=== PATIENT | female | born 1980 | race Caucasian/White ===

== ENCOUNTER 2019-06-23 18:31 | Observation (INO) ==
[2019-06-23 19:58] LABS: Basophils % 0.3 %; Eosinophils # 0.1 K/mcL (0.0-0.6); Eosinophils % 2.1 %; Hematocrit 38.3 % (35.3-44.9); Hemoglobin 12.1 g/dL (11.5-15.4); Immature Granulocytes % 0.6 % (0-4); Lymphocytes # 1.1 K/mcL (0.6-4.6); Lymphocytes % 16.4 %; Mean Corpuscular HGB Conc 31.6 g/dL (31.6-35.5); Mean Corpuscular Hemoglobin 25.1 pg (28.0-33.3); Mean Corpuscular Volume 79.5 fL (83.0-100.0); Mean Platelet Volume 9.1 fL (9.4-12.4); Monocytes # 0.5 K/mcL (0.0-1.3); Neutrophils # 4.9 K/mcL (1.6-8.9); Platelet Count 153 K/mcL (140-400); Red Blood Count 4.82 M/mcL (3.82-4.97); Red Cell Distribution Width 14.4 % (11.5-14.5); Segmented Neutrophils % 72.6 %; White Blood Count 6.8 K/mcL (4.3-11.1)
[2019-06-23 20:14] LABS: BUN/Creatinine Ratio 13 (6-26); Blood Urea Nitrogen 8 mg/dL (6-20); Calcium 8.5 mg/dL (8.6-10.3); Carbon Dioxide 24 mEq/L (23-29); Chloride 100 mEq/L (98-107); Glucose 97 mg/dL (70-105); Osmolality,Calculated 270 (280-300); Sodium 131 mEq/L (136-145); eGFR For African Americans > 60 (> 60); eGFR For Non-African Americans > 60 (> 60)
[2019-06-23 20:16] LABS: Troponin I < 0.03 ng/mL (< 0.04)
[2019-06-23 20:54] LABS: Alanine Aminotransferase 5 Units/L (7-52); Albumin 3.7 g/dL (3.5-5.7); Albumin/Globulin Ratio 1.2 (1.1-2.2); Alkaline Phosphatase 79 Units/L (34-104); Aspartate Amino Transferase 12 Units/L (13-39); Bilirubin,Indirect 0.5 mg/dL (0.0-1.2); Bilirubin,Total 0.5 mg/dL (0.3-1.0); Lipase 18 Units/L (11-82); Total Protein 6.7 g/dL (6.4-8.9)
--- NOTE | 2019-06-23 21:16 | Emergency Department Note ---
Disposition Clinical Impression: Elevated d-dimer Chest pain Qualifiers: Chest pain type: unspecified Qualified Code(s): R07.9 - Chest pain, unspecified Disposition: Still a Patient Condition: Fair Referrals: NONE,PCP [Primary Care Provider] - Forms: ED Satisfaction Letter Time of Disposition: 22:21 General Adult HPI - General Chief complaint: ED Chest Pain Stated complaint: Back / Chest Pain Time Seen by Provider: 06/23/19 19:09 Source: patient Mode of arrival: ambulatory Limitations: no limitations Nursing Notes Reviewed: Yes Vital Signs Reviewed: Yes - History of Present Illness HPI Narrative: Patient is a 38-year-old female that presents emergency Department with reports of chest pain. Patient states that the chest pain is located in the left side of her chest and radiates up into her left neck and sometimes down into her left arm. Patient states that she does have sharp pain that radiates straight into her back. Patient states that she has never had any heart issues in the past. Patient has any history of blood clots, hormone therapy, recent surgeries, cancer or any increased periods of immobility. Patient states that she does mock ve a history of IV drug use and uses on a daily basis. Patient states that she has not been coughing. Patient denies having any fevers. Patient states that when she injection injection to her lower abdomen and in her legs. Patient states that she usually uses heroin. Patient states that she has never been diagnosed with endocarditis but this is one of her concerns. Patient does report that she get some diaphoresis as well as nausea associated with her chest pain. Pain Scale: 8 - Related Data Home Medications Medication Instructions Recorded Confirmed No Known Home Drugs 06/23/19 06/23/19 Allergies Allergy/AdvReac Type Severity Reaction Status Date / Time clindamycin AdvReac Vomiting Verified 04/13/19 00:32 codeine AdvReac Itching Verified 04/13/19 00:32 All systems ED: reviewed and negative except as stated. Constitutional: Denies: fever Cardiovascular: Reports: chest pain Respiratory: Reports: dyspnea Gastrointestinal: Reports: nausea. Denies: abdominal pain, vomiting Genitourinary: Denies: urgency, dysuria, frequency Neurological: Denies: weakness, numbness, paresthesias Past Medical History - Past Medical History Medical history: Reports: hepatitis, kidney stones Psychiatric history: Reports: anxiety, bipolar - Social History Smoking Status: Current every day smoker Smokeless Tobacco Status: No Alcohol use: Reports: none Drug use: Reports: opiates, IV Drug Use Physical Exam - General Limitations: no limitations General appearance: alert, anxious - Head Head exam: atraumatic, normocephalic - Eye Eye exam: Present: normal appearance, EOMI - Neck Neck exam: Present: normal inspection, full ROM, trachea midline - Respiratory Respiratory exam: Present: normal lung sounds bilaterally. Absent: respiratory distress, wheezes - Cardiovascular Cardiovascular exam: Present: regular rate, normal rhythm, normal heart sounds, +S1, +S2 - Abdominal Exam Abdominal exam: Present: soft, Non-Tender, normal bowel sounds - Neurological Exam Neurological exam: Present: alert, oriented X3 - Psychiatric Psychiatric exam: Present: normal affect, normal mood - Skin Skin exam: Present: warm, dry, intact Course Vital Signs Temperature 99.0 F 06/23/19 18:53 Pulse Rate 104 06/23/19 18:53 Respiratory Rate 18 06/23/19 18:53 Blood Pressure 103/64 06/23/19 18:53 O2 Sat by Pulse Oximetry 97 06/23/19 18:53 Temperature 99.0 F 06/23/19 19:55 Pulse Rate 111 06/23/19 21:10 Respiratory Rate 16 06/23/19 21:10 Blood Pressure 105/60 06/23/19 21:10 O2 Sat by Pulse Oximetry 97 06/23/19 19:55 Oxygen Delivery Oxygen Delivery Room Air Medical Decision Making - MDM Narrative Medical decision making narrative: Due the patient since emergency department we will obtain basic laboratory testing. A troponin was negative. EKG did show some nonspecific T wave changes. The d-dimer was elevated at over 1100. The patient will need a CTA of the chest to evaluate for possible clot burden. Patient is also stated that if she requires admission she may want to go to [facility]. After discussion I think that she will likely stay here at [facility] but has still not definitively made up her mind. Patient was signed out to the night team of Dr. Dick please see his documentation for further medical decision making and final disposition of the patient. - Medical Records Medical records reviewed: Yes I reviewed the patient's medical records. - Lab Data Lab results reviewed: Yes I reviewed the patient's lab results. Result diagrams: 06/23/19 19:48 06/23/19 19:48 Lab Results 06/23/19 06/23/19 06/23/19 Range/Units 19:48 19:48 20:53 WBC 6.8 (4.3-11.1) K/mcL RBC 4.82 (3.82-4.97) M/mcL Hgb 12.1 (11.5-15.4) g/dL Hct 38.3 (35.3-44.9) % MCV 79.5 L (83.0-100.0) fL MCH 25.1 L (28.0-33.3) pg MCHC 31.6 (31.6-35.5) g/dL RDW 14.4 (11.5-14.5) % Plt Count 153 (140-400) K/mcL MPV 9.1 L (9.4-12.4) fL Immature Gran % 0.6 (0-4) % Seg Neutrophils % 72.6 % Lymphocytes % 16.4 % Monocytes % 8.0 % Eosinophils % 2.1 % Basophils % 0.3 % Neutrophils # 4.9 (1.6-8.9) K/mcL Lymphocytes # 1.1 (0.6-4.6) K/mcL Monocytes # 0.5 (0.0-1.3) K/mcL Eosinophils # 0.1 (0.0-0.6) K/mcL Basophils # 0.0 (0.0-0.2) K/mcL PT 12.8 H (9.4-12.1) Seconds INR 1.1 APTT 31.8 (26.0-36.0) Seconds D-Dimer 1191 H (0-500) ng/mLFEU Sodium 131 L (136-145) mEq/L Potassium 4.0 (3.5-5.1) mEq/L Chloride 100 (98-107) mEq/L Carbon Dioxide 24 (23-29) mEq/L BUN 8 (6-20) mg/dL Creatinine 0.63 (0.60-1.20) mg/dL Est GFR ( Amer) > 60 (> 60) Est GFR (Non-Af Amer) > 60 (> 60) BUN/Creatinine Ratio 13 (6-26) Glucose 97 (70-105) mg/dL Calculated Osmolality 270 L (280-300) Calcium 8.5 L (8.6-10.3) mg/dL Total Bilirubin 0.5 (0.3-1.0) mg/dL Direct Bilirubin 0.0 (0.0-0.2) mg/dL Indirect Bilirubin 0.5 (0.0-1.2) mg/dL AST 12 L (13-39) Units/L ALT 5 L (7-52) Units/L Alkaline Phosphatase 79 (34-104) Units/L Troponin I < 0.03 (< 0.04) ng/mL Serum Total Protein 6.7 (6.4-8.9) g/dL Albumin 3.7 (3.5-5.7) g/dL Globulin 3.0 (2.4-3.5) g/dL Albumin/Globulin Ratio 1.2 (1.1-2.2) Lipase 18 (11-82) Units/L Urine Color (Yellow) Urine Clarity (Clear) Urine pH (5.0-8.0) pH Units Ur Specific [place] (1.010-1.025) Urine Protein (Neg-Trace) mg/dL Urine Glucose (UA) (Normal) mg/dL Urine Ketones (Negative) mg/dL Urine Blood (Negative) Urine Nitrite (Negative) Urine Bilirubin (Negative) Urine Urobilinogen (Normal) mg/dL Ur Leukocyte Esterase (Negative) Urine Microscopic RBC (0-3) per hpf Urine Microscopic WBC (0-3) per hpf Ur Squamous Epith Cells (None-Few) per lpf Urine Bacteria (None-Few) per hpf Hyaline Casts (None-Few) per lpf Ur Culture Indicated? (NO) 06/23/19 Range/Units 21:10 WBC (4.3-11.1) K/mcL RBC (3.82-4.97) M/mcL Hgb (11.5-15.4) g/dL Hct (35.3-44.9) % MCV (83.0-100.0) fL MCH (28.0-33.3) pg MCHC (31.6-35.5) g/dL RDW (11.5-14.5) % Plt Count (140-400) K/mcL MPV (9.4-12.4) fL Immature Gran % (0-4) % Seg Neutrophils % % Lymphocytes % % Monocytes % % Eosinophils % % Basophils % % Neutrophils # (1.6-8.9) K/mcL Lymphocytes # (0.6-4.6) K/mcL Monocytes # (0.0-1.3) K/mcL Eosinophils # (0.0-0.6) K/mcL Basophils # (0.0-0.2) K/mcL PT (9.4-12.1) Seconds INR APTT (26.0-36.0) Seconds D-Dimer (0-500) ng/mLFEU Sodium (136-145) mEq/L Potassium (3.5-5.1) mEq/L Chloride (98-107) mEq/L Carbon Dioxide (23-29) mEq/L BUN (6-20) mg/dL Creatinine (0.60-1.20) mg/dL Est GFR ( Amer) (> 60) Est GFR (Non-Af Amer) (> 60) BUN/Creatinine Ratio (6-26) Glucose (70-105) mg/dL Calculated Osmolality (280-300) Calcium (8.6-10.3) mg/dL Total Bilirubin (0.3-1.0) mg/dL Direct Bilirubin (0.0-0.2) mg/dL Indirect Bilirubin (0.0-1.2) mg/dL AST (13-39) Units/L ALT (7-52) Units/L Alkaline Phosphatase (34-104) Units/L Troponin I (< 0.04) ng/mL Serum Total Protein (6.4-8.9) g/dL Albumin (3.5-5.7) g/dL Globulin (2.4-3.5) g/dL Albumin/Globulin Ratio (1.1-2.2) Lipase (11-82) Units/L Urine Color Yellow (Yellow) Urine Clarity Clear (Clear) Urine pH 7.5 (5.0-8.0) pH Units Ur Specific [place] 1.007 L (1.010-1.025) Urine Protein Negative (Neg-Trace) mg/dL Urine Glucose (UA) Normal (Normal) mg/dL Urine Ketones Negative (Negative) mg/dL Urine Blood Negative (Negative) Urine Nitrite Negative (Negative) Urine Bilirubin Negative (Negative) Urine Urobilinogen Normal (Normal) mg/dL Ur Leukocyte Esterase Moderate H (Negative) Urine Microscopic RBC 0-3 (0-3) per hpf Urine Microscopic WBC 5-15 H (0-3) per hpf Ur Squamous Epith Cells Many H (None-Few) per lpf Urine Bacteria None Seen (None-Few) per hpf Hyaline Casts None Seen (None-Few) per lpf Ur Culture Indicated? YES A (NO) - Radiology Data Radiology results reviewed: Yes I reviewed the patient's radiology results. - EKG Data EKG #1 EKG attestation: Yes I reviewed and interpreted this EKG. EKG results narrative: Patient's EKG shows sinus tachycardia at a rate of 110 bpm, ME interval 129, QRS duration 90, QTc of 448. There is no evidence of STEMI on EKG however there are T-wave inversions in lead 3 and T-wave flattening in aVF with some mild elevation in aVR. This was compared to previous EKG on 10/08/18. Attestation Statement - Attestation Attestation: I, Rayo David, examined this patient and my medical decision-making was reviewed with the MILK INSPECTOR/PA/Advanced Practice Nurse/Resident Physician. I agree with the documented findings, disposition and treatment plan as described except to the extent set forth below. 38-year-old female presents emergency Department with concerns of back and chest pain. Patient states that she has a history of IV drug use and has been having chest pain that radiates to her back over the past few days. She is tachycardic on the initial evaluation. Patient had an elevated d-dimer on laboratory evaluation. She has EKG changes concerning for S1, every 3, T3. We will evaluate for possible pulmonary emboli. I have concerns about possible septic emboli secondary to the patient's IV drug use. Patient care will be transferred to Dr. Dick pending repeat evaluation, CT and further disposition.
[2019-06-23 21:29] LABS: INR 1.1; Prothrombin Time 12.8 Seconds (9.4-12.1)
[2019-06-23 21:30] LABS: Bilirubin,Urine Negative (Negative); Blood,Urine Negative (Negative); Clarity,Urine Clear (Clear); Color,Urine Yellow (Yellow); Glucose,Urine (UA) Normal (Normal); Ketones,Urine Negative (Negative); Leukocyte Esterase,Urine Moderate (Negative); Nitrite,Urine Negative (Negative); PH,Urine 7.5 pH Units (5.0-8.0); Protein,Urine Negative (Neg-Trace); Specific Gravity,Urine 1.007 (1.010-1.025); Urobilinogen,Urine Normal (Normal)
[2019-06-23 21:32] LABS: Activated Partial Thrombo Time 31.8 Seconds (26.0-36.0)
[2019-06-23 21:33] LABS: Bacteria,Urine None Seen per hpf (None-Few); Hyaline Casts,Urine None Seen per lpf (None-Few); RBC,Urine 0-3 per hpf (0-3); Squamous Epithelial Cell,Urine Many per lpf (None-Few)
[2019-06-23] MEDS ORDERED: Isovue-370 500 ML BOTTLE IVP ONE (21:53)
--- NOTE | 2019-06-23 22:48 | Emergency Department Note ---
Disposition Clinical Impression: Elevated d-dimer Chest pain Qualifiers: Chest pain type: unspecified Qualified Code(s): R07.9 - Chest pain, unspecified Disposition: Admitted As Inpatient Condition: Fair Referrals: NONE,PCP [Primary Care Provider] - Forms: ED Satisfaction Letter Time of Disposition: 23:40 General Adult HPI - General Chief complaint: ED Chest Pain Stated complaint: Back / Chest Pain Time Seen by Provider: 06/23/19 19:09 Source: patient Mode of arrival: ambulatory Limitations: no limitations - History of Present Illness Pain Scale: 10 - Related Data Home Medications Medication Instructions Recorded Confirmed No Known Home Drugs 06/23/19 06/23/19 Allergies Allergy/AdvReac Type Severity Reaction Status Date / Time clindamycin AdvReac Vomiting Verified 04/13/19 00:32 codeine AdvReac Itching Verified 04/13/19 00:32 Constitutional: Denies: fever Cardiovascular: Reports: chest pain Respiratory: Reports: dyspnea Gastrointestinal: Reports: nausea. Denies: abdominal pain, vomiting Genitourinary: Denies: urgency, dysuria, frequency Neurological: Denies: weakness, numbness, paresthesias Past Medical History - Past Medical History Medical history: Reports: hepatitis, kidney stones Psychiatric history: Reports: anxiety, bipolar - Social History Smoking Status: Current every day smoker Smokeless Tobacco Status: No Alcohol use: Reports: none Drug use: Reports: opiates, IV Drug Use Physical Exam - General Limitations: no limitations General appearance: alert, anxious Course Vital Signs Temperature 99.0 F 06/23/19 18:53 Pulse Rate 104 06/23/19 18:53 Respiratory Rate 18 06/23/19 18:53 Blood Pressure 103/64 06/23/19 18:53 O2 Sat by Pulse Oximetry 97 06/23/19 18:53 Temperature 99.0 F 06/23/19 19:55 Pulse Rate 111 06/23/19 21:10 Respiratory Rate 16 06/23/19 21:10 Blood Pressure 105/60 06/23/19 21:10 O2 Sat by Pulse Oximetry 97 06/23/19 19:55 Oxygen Delivery Oxygen Delivery Room Air Medical Decision Making - Lab Data Result diagrams: 06/23/19 19:48 06/23/19 19:48 Lab Results 06/23/19 06/23/19 06/23/19 Range/Units 19:48 19:48 20:53 WBC 6.8 (4.3-11.1) K/mcL RBC 4.82 (3.82-4.97) M/mcL Hgb 12.1 (11.5-15.4) g/dL Hct 38.3 (35.3-44.9) % MCV 79.5 L (83.0-100.0) fL MCH 25.1 L (28.0-33.3) pg MCHC 31.6 (31.6-35.5) g/dL RDW 14.4 (11.5-14.5) % Plt Count 153 (140-400) K/mcL MPV 9.1 L (9.4-12.4) fL Immature Gran % 0.6 (0-4) % Seg Neutrophils % 72.6 % Lymphocytes % 16.4 % Monocytes % 8.0 % Eosinophils % 2.1 % Basophils % 0.3 % Neutrophils # 4.9 (1.6-8.9) K/mcL Lymphocytes # 1.1 (0.6-4.6) K/mcL Monocytes # 0.5 (0.0-1.3) K/mcL Eosinophils # 0.1 (0.0-0.6) K/mcL Basophils # 0.0 (0.0-0.2) K/mcL PT 12.8 H (9.4-12.1) Seconds INR 1.1 APTT 31.8 (26.0-36.0) Seconds D-Dimer 1191 H (0-500) ng/mLFEU Sodium 131 L (136-145) mEq/L Potassium 4.0 (3.5-5.1) mEq/L Chloride 100 (98-107) mEq/L Carbon Dioxide 24 (23-29) mEq/L BUN 8 (6-20) mg/dL Creatinine 0.63 (0.60-1.20) mg/dL Est GFR ( Amer) > 60 (> 60) Est GFR (Non-Af Amer) > 60 (> 60) BUN/Creatinine Ratio 13 (6-26) Glucose 97 (70-105) mg/dL Calculated Osmolality 270 L (280-300) Calcium 8.5 L (8.6-10.3) mg/dL Total Bilirubin 0.5 (0.3-1.0) mg/dL Direct Bilirubin 0.0 (0.0-0.2) mg/dL Indirect Bilirubin 0.5 (0.0-1.2) mg/dL AST 12 L (13-39) Units/L ALT 5 L (7-52) Units/L Alkaline Phosphatase 79 (34-104) Units/L Troponin I < 0.03 (< 0.04) ng/mL Serum Total Protein 6.7 (6.4-8.9) g/dL Albumin 3.7 (3.5-5.7) g/dL Globulin 3.0 (2.4-3.5) g/dL Albumin/Globulin Ratio 1.2 (1.1-2.2) Lipase 18 (11-82) Units/L Urine Color (Yellow) Urine Clarity (Clear) Urine pH (5.0-8.0) pH Units Ur Specific [place] (1.010-1.025) Urine Protein (Neg-Trace) mg/dL Urine Glucose (UA) (Normal) mg/dL Urine Ketones (Negative) mg/dL Urine Blood (Negative) Urine Nitrite (Negative) Urine Bilirubin (Negative) Urine Urobilinogen (Normal) mg/dL Ur Leukocyte Esterase (Negative) Urine Microscopic RBC (0-3) per hpf Urine Microscopic WBC (0-3) per hpf Ur Squamous Epith Cells (None-Few) per lpf Urine Bacteria (None-Few) per hpf Hyaline Casts (None-Few) per lpf Ur Culture Indicated? (NO) 06/23/19 Range/Units 21:10 WBC (4.3-11.1) K/mcL RBC (3.82-4.97) M/mcL Hgb (11.5-15.4) g/dL Hct (35.3-44.9) % MCV (83.0-100.0) fL MCH (28.0-33.3) pg MCHC (31.6-35.5) g/dL RDW (11.5-14.5) % Plt Count (140-400) K/mcL MPV (9.4-12.4) fL Immature Gran % (0-4) % Seg Neutrophils % % Lymphocytes % % Monocytes % % Eosinophils % % Basophils % % Neutrophils # (1.6-8.9) K/mcL Lymphocytes # (0.6-4.6) K/mcL Monocytes # (0.0-1.3) K/mcL Eosinophils # (0.0-0.6) K/mcL Basophils # (0.0-0.2) K/mcL PT (9.4-12.1) Seconds INR APTT (26.0-36.0) Seconds D-Dimer (0-500) ng/mLFEU Sodium (136-145) mEq/L Potassium (3.5-5.1) mEq/L Chloride (98-107) mEq/L Carbon Dioxide (23-29) mEq/L BUN (6-20) mg/dL Creatinine (0.60-1.20) mg/dL Est GFR ( Amer) (> 60) Est GFR (Non-Af Amer) (> 60) BUN/Creatinine Ratio (6-26) Glucose (70-105) mg/dL Calculated Osmolality (280-300) Calcium (8.6-10.3) mg/dL Total Bilirubin (0.3-1.0) mg/dL Direct Bilirubin (0.0-0.2) mg/dL Indirect Bilirubin (0.0-1.2) mg/dL AST (13-39) Units/L ALT (7-52) Units/L Alkaline Phosphatase (34-104) Units/L Troponin I (< 0.04) ng/mL Serum Total Protein (6.4-8.9) g/dL Albumin (3.5-5.7) g/dL Globulin (2.4-3.5) g/dL Albumin/Globulin Ratio (1.1-2.2) Lipase (11-82) Units/L Urine Color Yellow (Yellow) Urine Clarity Clear (Clear) Urine pH 7.5 (5.0-8.0) pH Units Ur Specific [place] 1.007 L (1.010-1.025) Urine Protein Negative (Neg-Trace) mg/dL Urine Glucose (UA) Normal (Normal) mg/dL Urine Ketones Negative (Negative) mg/dL Urine Blood Negative (Negative) Urine Nitrite Negative (Negative) Urine Bilirubin Negative (Negative) Urine Urobilinogen Normal (Normal) mg/dL Ur Leukocyte Esterase Moderate H (Negative) Urine Microscopic RBC 0-3 (0-3) per hpf Urine Microscopic WBC 5-15 H (0-3) per hpf Ur Squamous Epith Cells Many H (None-Few) per lpf Urine Bacteria None Seen (None-Few) per hpf Hyaline Casts None Seen (None-Few) per lpf Ur Culture Indicated? YES A (NO) Attestation Statement - Attestation Attestation: Care of patient assumed from Dr. Sanabria and Moo at 22:45 pending CTA chest. Patient with a history of IV drug use presented with chest and back pain. She has no history of endocarditis. The plan as endorsed to me was transfer to [facility] even if the CTA is negative at the patient's request. She may need a cardiac echo to evaluate for valvular lesions 23:40: CTA negative. Patient willing to be admitted to [facility]
[2019-06-24 00:02] LABS: Amphetamine Screen,Urine Negative ng/mL (Cutoff=1000); Barbiturate Screen,Urine Negative ng/mL (Cutoff=200); Benzodiazepines Screen,Urine Negative ng/mL (Cutoff=200); Cannabinoid Screen,Urine Negative ng/mL (Cutoff = 50); Cocaine Screen,Urine Negative ng/mL (Cutoff= 300); Opiate Screen,Urine Positive ng/mL (Cutoff=300); Phencyclidine Screen,Urine Negative ng/mL (Cutoff=25)
[2019-06-24] MEDS ORDERED: Naloxone 0.4 MG/ML INJ IVP PRN (01:49)
--- NOTE | 2019-06-24 02:41 | Internal Med History&Physical ---
Date of Encounter: 06/24/19 Time of Encounter: 01:00 Internal Medicine - H&P: HPI Chief complaint: Chest Pain Admitted From: Home Plans for Post Hospital Care: Home History of present illness: Ms. Tadeo is a 38 year old female with past medical history significant for hepatitis, anxiety, bipolar disorder, kidney stones, tobacco abuse, and IV drug abuse who presents for complaints of left sided chest pain radiating around to her back and up to her neck for past two days occurring intermittently. Pain is associated with shortness of breath and dizziness. Pain is described as sharp and heavy, and rated at 8/10 when at its worst. Denies any identifiable alleviating or exacerbating factors. Denies ever having symptoms like this before in the past. ER reported EKG as sinus tachycardia with no evidence of STEMI but with t wave inversions in lead 3 and t wave flattening in aVF with mild elevation in aVR when compared with previous EKG 10/08/18. ER also obtained chest xray which showed no acute abnormality. D-dimer in ER was elevated at 1191. CTA of the chest was obtained by ER showing no evidence of pulmonary embolism or acute pulmonary abnormality and vague ground glass opacities with smooth interlobular septal thickening in the lung bases suggesting fluid overload. Currently patient is symptom free. Currently denies any headache, dizziness, chest pain, shortness of breath, cough, abdominal pain, bowel or bladder changes. Denies any previous echocardiogram or stress testing. Reports current IV drug abuse with daily heroin use, reports she has been trying to quit and has decreased use from 10 times to 1 time per day. Reports being diagnosed with hepatitis A, B, and C last year at [facility] but has not followed up since. Also denies following regularly with a PCP. Past Med Surg Social Fam HX - Past Medical History Medical history: hepatitis, kidney stones Additional medical history: Hepatitis A, B, C Psychiatric history: anxiety, bipolar - Past Surgical History Surgical History: hysterectomy Additional surgical history: kidney stone removal. D&C - Social History Smoking Status: Current every day smoker Smokeless Tobacco Status: No Alcohol use: none Drug use: IV Drug Use Internal Medicine - H&P: Meds No Known Home Drugs 06/23/19 [History] Allergy/AdvReac Type Severity Reaction Status Date / Time clindamycin AdvReac Vomiting Verified 04/13/19 00:32 codeine AdvReac Itching Verified 04/13/19 00:32 All Systems PM: A 10-system review of systems was performed and is negative for pertinent findings except as documented above in the HPI. - Constitutional Vitals: Temp Pulse Resp BP Pulse Ox 99.0 F 79 18 113/62 96 06/23/19 19:55 06/24/19 00:21 06/24/19 00:21 06/24/19 00:21 06/24/19 00:21 Exam: General: Alert and oriented. Skin:Normal color, no rash. Dry intact lesions from injecting drugs. HEENT:Pupils equal, round and reactive. Cardiovascular:Normal S1 & S2, no rubs, murmurs or gallops. No JVD. Pulse regular. Lungs:Normal breath sounds, no wheezes or crackles. Abdomen:Soft, non-tender, no rigidity. Extremities:No deformity, no edema or tenderness, no joint swelling or clubbing. Neurological:Normal cognition and motor skills. Pulses:Carotid and radial pulses normal +2. Rest of the physical exam is non contributory. Internal Med - H&P Results - Labs CBC & Chem 7: 06/23/19 19:48 06/23/19 19:48 Labs: Short CBC 06/23/19 Range/Units 19:48 WBC 6.8 (4.3-11.1) K/mcL Hgb 12.1 (11.5-15.4) g/dL Hct 38.3 (35.3-44.9) % Plt Count 153 (140-400) K/mcL Neutrophils # 4.9 (1.6-8.9) K/mcL BMP 06/23/19 19:48 Sodium 131 L Potassium 4.0 Chloride 100 Carbon Dioxide 24 BUN 8 Creatinine 0.63 Glucose 97 Calcium 8.5 L Cardiac Enzymes 06/23/19 Range/Units 19:48 Troponin I < 0.03 (< 0.04) ng/mL Liver Function 06/23/19 Range/Units 19:48 Total Bilirubin 0.5 (0.3-1.0) mg/dL Direct Bilirubin 0.0 (0.0-0.2) mg/dL AST 12 L (13-39) Units/L ALT 5 L (7-52) Units/L Alkaline Phosphatase 79 (34-104) Units/L Albumin 3.7 (3.5-5.7) g/dL Urine 07/28/19 Range/Units 21:10 Urine Color Yellow (Yellow) Urine Clarity Clear (Clear) Urine pH 7.5 (5.0-8.0) pH Units Ur Specific [place] 1.007 L (1.010-1.025) Urine Protein Negative (Neg-Trace) mg/dL Urine Glucose (UA) Normal (Normal) mg/dL - Impressions ITS Impressions Chest X-Ray 06/23/19 18:56 IMPRESSION: No acute abnormality. D/ / Benji Kerns MD / Benji Kerns MD Interpreting Provider: Benji Kerns MD Chest CTA 06/23/19 21:53 IMPRESSION: No evidence of pulmonary embolism or acute pulmonary abnormality. Vague ground-glass opacities with smooth interlobular septal thickening in the lung bases suggesting fluid overload. D/ / Mark Haynes / Mark Haynes Interpreting Provider: Mark Haynes - Assessment and Plan (1) Chest pain Current Visit: Yes Status: Acute Assessment and plan: Currently resolved. Continuous cardiac monitoring. Initial troponin in ER negative, serial troponins ordered. Echocardiogram ordered. Qualifiers: Chest pain type: unspecified Qualified Code(s): R07.9 - Chest pain, unspecified (2) Elevated d-dimer Current Visit: Yes Status: Acute Assessment and plan: Elevated at 1191. CTA of chest showed no evidence of pulmonary embolism or acute pulmonary abnorma lity. (3) Abnormal urinalysis Current Visit: Yes Status: Acute Assessment and plan: UA obtained in ER with moderate leukocyte esterase and WBC's but possibly contaminated with epithelial cells present. Denies any urinary symptoms. Will hold off on antibiotics for now. Urine culture pending. (4) IV drug abuse Current Visit: Yes Status: Acute Assessment and plan: Admits to daily heroin use. Reports trying to quit, social work consult for drug abuse resources and establishment with PCP. Echocardiogram ordered due to high risk for endocarditis. Blood cultures also pending. (5) Hepatitis Current Visit: Yes Status: Chronic Assessment and plan: Reports history of Hepatitis A, B, and C diagnosed last year at [facility] but has not followed up since. Will need outpatient follow up at discharge. - Time Spent With Patient Total time spent is greater than 50% in coordination of care (as documented) at patient's floor/unit and/or counseling patient:
[2019-06-24] MEDS ORDERED: 0.9 % Sodium Chloride 500 ML IVC ONE (03:06)
[2019-06-24 03:21] LABS: Basophils % 0.5 %; Eosinophils # 0.2 K/mcL (0.0-0.6); Hematocrit 39.8 % (35.3-44.9); Hemoglobin 12.6 g/dL (11.5-15.4); Immature Granulocytes % 0.2 % (0-4); Lymphocytes # 1.7 K/mcL (0.6-4.6); Lymphocytes % 29.5 %; Mean Corpuscular HGB Conc 31.7 g/dL (31.6-35.5); Mean Corpuscular Hemoglobin 25.1 pg (28.0-33.3); Mean Corpuscular Volume 79.4 fL (83.0-100.0); Mean Platelet Volume 9.3 fL (9.4-12.4); Monocytes # 0.4 K/mcL (0.0-1.3); Monocytes % 6.2 %; Neutrophils # 3.4 K/mcL (1.6-8.9); Platelet Count 175 K/mcL (140-400); Red Blood Count 5.01 M/mcL (3.82-4.97); Red Cell Distribution Width 14.4 % (11.5-14.5); Segmented Neutrophils % 60.6 %; White Blood Count 5.6 K/mcL (4.3-11.1)
[2019-06-24 03:33] LABS: Alanine Aminotransferase 4 Units/L (7-52); Albumin 3.7 g/dL (3.5-5.7); Albumin/Globulin Ratio 1.2 (1.1-2.2); Alkaline Phosphatase 80 Units/L (34-104); Aspartate Amino Transferase 10 Units/L (13-39); BUN/Creatinine Ratio 11 (6-26); Bilirubin,Total 0.4 mg/dL (0.3-1.0); Blood Urea Nitrogen 8 mg/dL (6-20); Calcium 8.5 mg/dL (8.6-10.3); Carbon Dioxide 24 mEq/L (23-29); Chloride 105 mEq/L (98-107); Globulin 3.1 g/dL (2.4-3.5); Glucose 97 mg/dL (70-105); Osmolality,Calculated 280 (280-300); Potassium 3.5 mEq/L (3.5-5.1); Sodium 136 mEq/L (136-145); Total Protein 6.8 g/dL (6.4-8.9); eGFR For African Americans > 60 (> 60); eGFR For Non-African Americans > 60 (> 60)
[2019-06-24] MEDS ORDERED: *HR* Heparin 5,000 UNIT/ML VIAL SQ SCH (06:00)
[2019-06-24 12:25] VITALS: BP 96/60
--- NOTE | 2019-06-24 14:24 | Discharge Summary ---
- NOTES TO OUTPATIENT PROVIDER Notes to Outpatient Provider: f/u with PCP in one week. Please quit doing drugs. Orders not resulted at time of discharge: Pending orders 06/23/19 21:10 Culture,Urine [RM] Stat Date of Encounter: 06/24/19 Time of Encounter: 14:18 - Discharge Diagnosis (1) Chest pain Priority: Primary Status: Acute Qualifiers: Chest pain type: unspecified Qualified Code(s): R07.9 - Chest pain, unspecified (2) Elevated d-dimer Priority: Secondary Status: Acute (3) Abnormal urinalysis Priority: Secondary Status: Acute (4) IV drug abuse Priority: Secondary Status: Acute (5) Hepatitis Priority: Secondary Status: Chronic Hospital course: Ms. Tadeo is a 38 year old female with past medical history significant for hepatitis, anxiety, bipolar disorder, kidney stones, tobacco abuse, and IV drug abuse who presented to ER with c/o left sided chest pain radiating around to her back and up to her neck for past two days occurring intermittently. Pain is associated with shortness of breath and dizziness. D-dimer in ER was elevated at 1191. CTA of the chest was obtained by ER showing no evidence of pulmonary embolism or acute pulmonary abnormality and vague ground glass opacities with sm ooth interlobular septal thickening in the lung bases suggesting fluid overload. She was admitted in the hospital and placed her on athletic monitor. Her serial troponin came back as negative. She denied any more active chest pain. Due to her EKG changes with T wave inversion and current CP, I recommended the pt to go for stress test. However pt refused to go for stress test. She wanted to have 2 D Echo done , if that does not show any acute abnormalities she would like to go home now and f/u with PCP as an out pt. Her 2D Echo showed Preserved LVEF and Normal Rt ventricular structure and function. No septal / wall motion abnormalities. - Time Spent with Patient Total time spent providing and/or coordinating discharge services: - Discharge Medications Prescriptions: New Aspirin Enteric Coated [Aspirin EC] 81 mg PO DAILY #30 tablet. Home Medications: Aspirin Enteric Coated [Aspirin EC] 81 mg PO DAILY #30 tablet. 06/24/19 [Rx] Allergies/Adverse Reactions: Allergy/AdvReac Type Severity Reaction Status Date / Time clindamycin AdvReac Vomiting Verified 04/13/19 00:32 codeine AdvReac Itching Verified 04/13/19 00:32 Date of admission: 06/24/19 00:11 Primary care physician: PCP NONE Consults: 06/24/19 02:46 Consult to [employer] [CONS] Routine Reason for SW Consult: Drug abuse resources and PCP establishment. - Constitutional Vitals: Temp Pulse Resp BP Pulse Ox 97.7 F 70 16 96/60 98 06/24/19 12:22 06/24/19 12:22 06/24/19 12:22 06/24/19 12:22 06/24/19 12:22 General appearance: Present: A&O X 3, no acute distress, answers questions appropriately Exam: Gen: Alert, awake, Oriented to time,place and person Chest: Diminished breath sounds B/L, No wheezing, No crackles, No rales Heart: S1S2+ RRR No murmurs Abd: Soft, NT, BS +, No organomegaly Ext: No edema, pulses are palpable, No calf tenderness Neuro : No acute focal neuro deficits noticed - Patient Status Disposition: Home, Self-Care Condition: Good Overall status at discharge: patient is back to baseline - Discharge Instructions Follow Up With: Nilda Elliott CNP [Partnered Physician] - 07/01/19 10:00 am (Please arrive 30 minutes early to appointment to fill out paperwork. Bring all ID, insurances, and medications within their original bottles. If you can not arrive to the appointment, please call ahead to cancel and/or reschedule 24 hours ahead of appointment time. This office does not prescribe any controlled substances.) - Diet and Activity Activity: increase activity as tolerated Diet: low salt diet
--- NOTE | 2019-06-24 16:39 | Electrocardiograph Report ---
[address] [address] Test Date: 2019-06-23 Pat Name: Vannesa Tadeo Department: [id number] Room: 3B39 Gender: F Vacuum Truck Driver: : 1980 Requested By: Rayo David Order Number: [id number] Reading MD: Manny López Measurements Intervals Hortense Rate: 110 P: 36 VA: 129 QRS: 78 QRSD: 90 T: -14 QT: 331 QTc: 448 Interpretive Statements Sinus tachycardia Nonspecific ST-T changes Electronically Signed On 06-24-2019 16:38:24 EDT by Manny López
== END 2019-06-24 14:34 | disposition home or self-care (01) ==
LOC: 3BNU 18:31 → EMEROOARM 18:31 → SUATTDRO 06-24 00:11 → 3BNU 06-24 01:43
PROVIDERS: ADMIT Pediatrics; ATTEND Family Medicine